=== PATIENT | female | born 1985 | race Hispanic/Latino ===

== ENCOUNTER 2020-05-07 09:42 | Outpatient (CLI) | payer OTHER, SELFPAY ==
--- NOTE | ~2020-05-07 | US_ITS ---
EXAMINATION: US pelvic complete EXAM DATE: 05/07/2020 10:18 INDICATION: Polycystic ovary syndrome . TECHNIQUE: Pelvic transabdominal sonogram was performed. There are multiple grayscale and Doppler im ages available for interpretation. There is no prior study for comparison. FINDINGS: Uterus measures 8.2 x 4.8 x 4.9 cm, and is morphologically normal. Endometrial stripe kiersten sures 15 mm, within normal limits. There is no free pelvic fluid. Right adnexa: The ovary measures 2.6 x 2.1 x 2.1 cm and is morphologically normal. Ovarian vascular f low confirmed. Left adnexa: The ovary measures 5.0 x 3.9 x 5.0 cm and has a 4 cm anechoic lesion likely the dominant follicle. Ovarian vascular flow confirmed. IMPRESSION: 1. Unremarkable pelvic ultrasound exam. Reviewed, dictated and finalized at location A. [employer] PROJECT MANAGER
== END 2020-05-07 09:43 | disposition home or self-care (01) ==
LOC: ANHIMG 09:51
PROVIDERS: PCP Obstetrics & Gynecology; Visit Provider Obstetrics & Gynecology
DX: E28.2 Polycystic ovarian syndrome (principal)
CPT/HCPCS: 76856